=== PATIENT | female | born 1960 | race Two or more races ===

== ENCOUNTER 2018-09-02 09:02 | Outpatient (CLI) | payer OTHER | END 2018-09-02 09:08 | disposition home or self-care (01) | LOC: SONOGRAMA 09:02 | DX: E04.2 Nontoxic multinodular goiter (principal) ==

== ENCOUNTER 2023-07-19 10:00 | Outpatient (CLI) | payer OTHER | END 2023-07-19 10:07 | disposition home or self-care (01) | LOC: SONOGRAMA 10:00 | PROVIDERS: ATTEND Pathology Anatomic Pathology & Clinical Pathology | DX: D44.0 Neoplasm of uncertain behavior of thyroid gland (principal); E04.2 Nontoxic multinodular goiter ==